=== PATIENT | female | born 1955 | race Caucasian/White ===

== ENCOUNTER 2017-10-14 07:05 | Day surgery (SDC) | payer OTHER ==
[~2017-10-14] VITALS: Ht 152.4 cm; Wt 90.7 kg
[~2017-10-14 07:05] MED LIST: ALBUTEROL SULF8.5 GM INH; ASPIRIN325 MG PO; BENADRYL25 MG PO; CRUTCH1 EACH; FLOVENT DISKU100 MCG INH; HYDROCHLOROTHIA25 MG PO; LEVOTHYROXINE100 MCG PO; LISINOPRIL20 MG PO; OMEPRAZOLE20 MG PO; SIMVASTATIN20 MG PO; VENLAFAXINE HCL75 MG PO; VICODIN 5-3001 EACH PO
--- NOTE | 2017-10-14 10:49 | NUR ---
10/14/17 Mayte9 Ayanna Jurado 1041 PT REPORTING 04/27, MEDICAITON GIVEN PER EMAR. 1048 PT REPORTING 01/26 PAIN
--- NOTE | 2017-10-14 13:48 | NUR ---
LE 1240: SANDWICH AND SOUP ARRIVES FROM DIETARY. PT SITTING UP IN BED EATING AND DENIES ADD'L NEEDS.
--- NOTE | 2017-10-25 09:50 | OR ---
[facility] [address], [place] [address] Signed DATE OF OPERATION: 10/14/2017 SURGEON: Jailene Mackay MD PREOPERATIVE DIAGNOSIS: Postmenopausal bleeding. POSTOPERATIVE DIAGNOSIS: Postmenopausal bleeding with multiple endometrial polyps. PROCEDURE: Hysteroscopy, D and C, resection of polyps. ANESTHESIA: General ET. ESTIMATED BLOOD LOSS: Minimal. DRAINS: None. INDICATIONS AND FINDINGS: The patient is a 61-year-old female, 4, para 4, who has had recent postmenopausal bleeding over the last 2 and 1/2 months. EMB was nondiagnostic. She is now admitted for further evaluation of her bleeding. At the time of surgery, exam under anesthesia was normal. The uterus sounded to 9 cm. On placement of the hysteroscope, there were multiple large polyps within the cavity. PROCEDURE IN DETAIL: The patient was prepped and draped in the dorsal lithotomy position. A weighted speculum was placed and the anterior lip of the cervix was visualized and grasped with a single-tooth tenaculum. The uterus sounded to 9 cm. The endocervical cavity was dilated to a #8 dilator. The hysteroscope was then placed using the MyoSure device. The cavity was evaluated. Multiple large polyps were seen. The hysteroscope was removed and polyp forceps were introduced and multiple large polyps were removed using the polyp forceps. Placing the hysteroscope again showed that there still were a few smaller polyps present. D and C was done after removing the hysteroscope, but no further tissue was obtained. Following this, the hysteroscope was replaced and because there were still some small polyps, MyoSure LITE device was placed. This device was used to remove the remaining Electronically Signed By: JAILENE MACKAY MD 10/25/17 0950 PATIENT NAME: IVORY DAMON OPERATIVE REPORT DATE OF : 57 PHYSICIAN: JAILENE MACKAY MD REPORT #: [id number] REPORT IS CONFIDENTIAL AND NOT TO BE RELEASED WITHOUT AUTHORIZATION [facility] [address] [place] [address] [place], [place] [address] Signed small polyps. Following this, the procedure was terminated. The tenaculum was removed and there was no evidence of bleeding from the tenaculum site. She was taken to the recovery room in good condition. Jailene Mackay MD PJW/MODL /[id number] cc: Dr. Piedra Electronically Signed By: JAILENE MACKAY MD 10/25/17 0950 PATIENT NAME: IVORY DAMON OPERATIVE REPORT DATE OF : 57 PHYSICIAN: JAILENE MACKAY MD REPORT #: [id number] REPORT IS CONFIDENTIAL AND NOT TO BE RELEASED WITHOUT AUTHORIZATION
== END 2017-10-14 13:10 | disposition home or self-care (01) ==
LOC: DS 07:05
PROVIDERS: Obstetrics & Gynecology
PROC: 0UDB8ZX Extraction of Endometrium, Via Natural or Artificial Opening Endoscopic, Diagnostic (ICD-10-PCS; principal; 2017-10-14 09:15)
DX: N84.0 Polyp of corpus uteri (principal); E78.00 Pure hypercholesterolemia, unspecified; I10 Essential (primary) hypertension; F32.9 Major depressive disorder, single episode, unspecified; E03.9 Hypothyroidism, unspecified; G47.33 Obstructive sleep apnea (adult) (pediatric); F17.210 Nicotine dependence, cigarettes, uncomplicated; J45.40 Moderate persistent asthma, uncomplicated; G89.4 Chronic pain syndrome; G25.81 Restless legs syndrome; Z90.89 Acquired absence of other organs; Z98.51 Tubal ligation status; Z88.0 Allergy status to penicillin; Z88.5 Allergy status to narcotic agent; Z79.899 Other long term (current) drug therapy
CPT/HCPCS: 00952; J0330; J1170; J1885; J2704; J2765; J3010; J7120

== ENCOUNTER 2017-12-12 11:08 | Emergency (ER) | payer OTHER ==
[~2017-12-12] VITALS: Ht 152.4 cm; Wt 90.7 kg
[2017-12-12] MEDS ORDERED: FLOVENT HFA12 GM INH (11:31)
[2017-12-12] MEDS ORDERED: CLEOCIN HCL300 MG PO (12:35)
== END 2017-12-12 12:51 | disposition home or self-care (01) ==
LOC: ED 11:08
PROC: 0C9WXZ0 Drainage of Upper Tooth, External Approach, Single (ICD-10-PCS; principal; 2017-12-12)
DX: K04.7 Periapical abscess without sinus (principal); K12.2 Cellulitis and abscess of mouth; I10 Essential (primary) hypertension; J45.909 Unspecified asthma, uncomplicated; F17.200 Nicotine dependence, unspecified, uncomplicated; Z88.0 Allergy status to penicillin; Z88.1 Allergy status to other antibiotic agents; Z88.5 Allergy status to narcotic agent; Z88.8 Allergy status to other drugs, medicaments and biological substances; Z79.899 Other long term (current) drug therapy; Z79.82 Long term (current) use of aspirin
CPT/HCPCS: 41800; 99283

== ENCOUNTER 2019-09-11 11:25 | Emergency (ER) | payer OTHER ==
[~2019-09-11] VITALS: Ht 152.4 cm; Wt 91.6 kg
--- OUTSIDE RECORDS SUMMARY | ~2019-09-11 | XMS | Encounter Summary ---
Demographics + + + | Address | [address] | | | [place] [address] | + + + | Home Phone | | + + + | Preferred Language | Unknown | + + + | Marital Status | | + + + | Uatsdin Affiliation | Unknown | + + + | Race | Unknown | + + + | Ethnic Group | Unknown | + + + Author + + + | Author | [facility] | | | and [place] | + + + | Organization | [facility] | | | and [place] | + + + | Address | Unknown | + + + | Phone | Unavailable | + + + Support + + +---------+ + | Name | Relationship | Address | Phone | + + +---------+ + | Nj Tuckerage | ECON | Unknown | | + + +---------+ + Care Team Providers + +------+ + | Care Bead Builder Name | Role | Phone | + +------+ + PCP | Unavailable | + +------+ + Encounter Details +--------+ + + + + | Date | Type | Department | Care Team | Description | +--------+ + + + + | 02/06/ | Hospital | C GENERIC IP | Conversion | Pain | | 2015 | Encounter | CONVERSION [address] | Transaction, | | | | | [address] | Provider Unknown | | | | | [place], [place] | | | | | | [phone] | (Fax) | | | | | [phone] | | | +--------+ + + + + Social History + +-------+ +--------+------+ | Tobacco Use | Types | Packs/Day | Years | Date | | | | | Used | | + +-------+ +--------+------+ | Never Assessed | | | | | + +-------+ +--------+------+ + + + | Sex Assigned at | Date Recorded | | | | + + + | Not on file | | + + + + + + + | Job Start Date | Occupation | Industry | + + + + | Not on file | Not on file | Not on file | + + + + + + + + | Travel History | Travel Start | Travel End | + + + + + + | No recent travel history available. | + + documented as of this encounter Plan of Treatment Not on filedocumented as of this encounter Procedures + +--------+ + + + | Procedure Name | Priori | Date/Time | Associated Diagnosis | Comments | | | ty | | | | + +--------+ + + + | MRI CERVICAL SPINE | Routin | 02/05/2015 | | Results for this | | WO CONTRAST | e | 5:05 AM | | procedure are in the | | | | PDT | | results section. | + +--------+ + + + documented in this encounter Results MRI Cervical Spine wo Contrast (02/05/2015 5:05 AM PDT) + + | Specimen | + + | | + + + + + | Narrative | Performed At | + + + | This is a non-reportable procedure without a radiologist report and | | | is used for image storage only | | + + + + + | Procedure Note | + + | Haile Fabian - 06/03/2019 5:16 AM PDT This is a non-reportable procedure | | without a radiologist report and isused for image storage only | + + documented in this encounter Visit Diagnoses + + | Diagnosis | + + | Pain Generalized pain | + + documented in this encounter"
--- OUTSIDE RECORDS SUMMARY | ~2019-09-11 | XMS | Clinical Summary ---
Demographics + + + | Address | [address] | | | [place] [address] | + + + | Home Phone | | + + + | Preferred Language | Unknown | + + + | Marital Status | | + + + | Jainism Affiliation | Unknown | + + + | Race | Unknown | + + + | Ethnic Group | Unknown | + + + Author + + + | Author | [facility] | | | and [place] | + + + | Organization | [facility] | | | and [place] | + + + | Address | Unknown | + + + | Phone | Unavailable | + + + Support + + +---------+ + | Name | Relationship | Address | Phone | + + +---------+ + | Nj Akers | ECON | Unknown | | + + +---------+ + Care Team Providers + +------+ + | Care Bobbin Trucker Name | Role | Phone | + +------+ + | Tomás Piedra MD | PCP | | + +------+ + Allergies Not on File Medications Not on file Active Problems Not on file Family History + + +------+ + | Medical History | Relation | Name | Comments | + + +------+ + | Cancer | Other | | | + + +------+ + | Diabetes | Other | | | + + +------+ + | Heart disease | Other | | | + + +------+ + | Hypertension | Other | | | + + +------+ + | Other (see comment) | Other | | Other (see comments) - Problems with | | | | | anesthesia | + + +------+ + | Stroke | Other | | | + + +------+ + + +------+--------+ + | Relation | Name | Status | Comments | + +------+--------+ + | Other | | | | + +------+--------+ + Social History + +-------+ +--------+------+ | Tobacco Use | Types | Packs/Day | Years | Date | | | | | Used | | + +-------+ +--------+------+ | Former Smoker | | 1 | | | + +-------+ +--------+------+ + [...] recent travel history available. | + + Last Filed Vital Signs Not on file Plan of Treatment + + + + + | Health Maintenance | Due Date | Last Done | Comments | + + + + + | Vaccine: | | | | | Dtap/Tdap/Td (1 - | 6 | | | | Tdap) | | | | + + + + + | Cervical Cancer | | | | | Screening (Pap) | 7 | | | + + + + + | Vaccine: Zoster (1 | | | | | of 2) | 7 | | | + + + + + | Breast Cancer | | | | | Screening | 2 | | | + + + + + | Vaccine: Influenza | | | | | (#1) | 9 | | | + + + + + Results Not on filefrom Last 3 Months"
--- OUTSIDE RECORDS SUMMARY | ~2019-09-11 | XMS | Encounter Summary ---
Demographics + + + | Address | [address] | | | [place] [address] | + + + | Home Phone | | + + + | Preferred Language | Unknown | + + + | Marital Status | | + + + | Jewish Affiliation | Unknown | + + + | Race | Unknown | + + + | Ethnic Group | Unknown | + + + Author + + + | Author | [facility] | | | and [place] | + + + | Organization | [facility] | | | and [...] Team Providers + +------+ + | Care Ict Business Analyst Name | Role | Phone | + +------+ + PCP | Unavailable | + +------+ + Encounter Details +--------+ + + + + | Date | Type | Department | Care Team | Description | +--------+ + + + + | 02/10/ | Hospital | C GENERIC IP | Conversion | Pain | | 2013 | Encounter | CONVERSION [address] | Transaction, | | | | | [address] | Provider Unknown | | | | | [place], [place] | | | | | | [phone] | (Fax) | | | | | [phone] | | | +--------+ + + + [...] | + +--------+ + + + | XR CERVICAL SPINE 2 | Routin | 01/23/2014 | | Results for this | | OR 3 VIEWS | e | 10:47 PM | | procedure are in the | | | | PDT | | results section. | + +--------+ + + + documented in this encounter Results XR Cervical Spine 2 or 3 Views (01/23/2014 10:47 PM PDT) + + | Specimen | + + | | + + + + + | Narrative | Performed At | + + + | This is a non-reportable procedure without a radiologist report and | | | is used for image storage only | | + + + + + | Procedure Note | + + | Haile Fabian - 06/03/2019 3:12 PM PDT This is a non-reportable procedure | | without a radiologist report and isused for image storage only | + + documented in this encounter Visit Diagnoses + + | Diagnosis | + + | Pain Generalized pain | + + documented in this encounter"
--- OUTSIDE RECORDS SUMMARY | ~2019-09-11 | XMS | Encounter Summary ---
Demographics + + + | Address | [address] | | | [place] [address] | + + + | Home Phone | | + + + | Preferred Language | Unknown | + + + | Marital Status | | + + + | Presybeterian Affiliation | Unknown | + + + | Race | Unknown | + + + | Ethnic Group | Unknown | + + + Author + + + | Author | [facility] | | | and [place] | + + + | Organization | [facility] | | | and [...] Team Providers + +------+ + | Care Sock Knitting Machine Operator Name | Role | Phone | + +------+ + PCP | Unavailable | + +------+ + Encounter Details +--------+ + + + + | Date | Type | Department | Care Team | Description | +--------+ + + + + | 02/13/ | Hospital | C GENERIC IP | Conversion | Pain | | 2015 | Encounter | CONVERSION [address] | Transaction, | | | | | [address] | Provider Unknown | | | | | [place], [place] | | | | | | [phone] | (Fax) | | | | | [phone] | | | +--------+ + + + [...] + +--------+ + + + | MRI LUMBAR SPINE WO | Routin | 02/12/2015 | | Results for this | | CONTRAST | e | 11:56 PM | | procedure are in the | | | | PDT | | results section. | + +--------+ + + + documented in this encounter Results MRI Lumbar Spine wo Contrast (02/12/2015 11:56 PM PDT) + + | Specimen | [...]
--- OUTSIDE RECORDS SUMMARY | ~2019-09-11 | XMS | Clinical Summary ---
Demographics + + + | Address | [address] | | | [place] [address] | + + + | Home Phone | | + + + | Preferred Language | Unknown | + + + | Marital Status | | + + + | Denominational Affiliation | Unknown | + + + | Race | Unknown | + + + | Ethnic Group | Unknown | + + + Author + + + | Author | [facility] (Historical as of | | | 06-04-19) | + + + | Organization | [facility] (Historical as of | | | 06-04-19) | + + + | Address | Unknown | + + + | Phone | Unavailable | + + + Support + + + + + | Name | Relationship | Address | Phone | + + + + + | Nj Akers | ECON | [address] | | | | | [place] | | | | | [address] | | + + + + + Care Team Providers + +------+ + | Care Clip Bolter And Wrapper Name | Role | Phone | + +------+ + | Tomás Piedra MD | PP | | + +------+ + Allergies + + + + + + | Active Allergy | Reactions | Severity | Noted | Comments | | | | | Date | | + + + + + + | Codeine | Nausea and Vomiting | Low | 04/18/20 | | | | | | 14 | | + + + + + + | Penicillins | Hives | High | 07/07/20 | | | | | | 14 | | + + + + + + Current Medications + + +-------+---------+------+------+-------+ | Prescription | Sig. | Disp. | Refills | Star | End | Statu | | | | | | t | Date | s | | | | | | Date | | | + + +-------+---------+------+------+-------+ | levothyroxine | Take 100 mcg by | | | | | Activ | | (SYNTHROID) 88 MCG | mouth every morning | | | | | e | | tablet | before breakfast. | | | | | | + + +-------+---------+------+------+-------+ | venlafaxine | Take 75 mg by mouth | | | | | Activ | | (EFFEXOR) 75 MG | 2 (two) times daily. | | | | | e | | tablet | | | | | | | + + +-------+---------+------+------+-------+ | simvastatin | Take 20 mg by mouth | | | | | Activ | | (ZOCOR) 20 MG tablet | nightly. | | | | | e | + + +-------+---------+------+------+-------+ | | Take 1 tablet by | | | | | Activ | | HYDROcodone-acetamin | mouth every 6 (six) | | | | | e | | ophen (NORCO) 5-325 | hours as needed. | | | | | | | MG per tablet | | | | | | | + + +-------+---------+------+------+-------+ | lisinopril | Take 20 mg by mouth | | | | | Activ | | (ZESTRIL) 20 MG | daily. | | | | | e | | tablet | | | | | | | + + +-------+---------+------+------+-------+ | | Take 25 mg by mouth | | | | | Activ | | hydrochlorothiazide | daily. | | | | | e | | (HYDRODIURIL) 25 MG | | | | | | | | tablet | | | | | | | + + +-------+---------+------+------+-------+ | cetirizine | Take 10 mg by mouth | | | | | Activ | | (ZYRTEC) 10 MG | daily. | | | | | e | | tablet | | | | | | | + + +-------+---------+------+------+-------+ | Fluticasone | Inhale into the | | | | | Activ | | Propionate, Inhal, | lungs. | | | | | e | | (FLOVENT IN) | | | | | | | + + +-------+---------+------+------+-------+ | meloxicam (MOBIC) | Take 15 mg by mouth | | | | | Activ | | 15 MG tablet | daily. | | | | | e | + + +-------+---------+------+------+-------+ Active Problems + + + | Problem | Noted Date | + + + | Lumbar radicular pain | 04/05/2015 | + + + + + | Last Assessment & Plan: This is a 59-year-old female who has | | neck pain with bilateral hand numbness and tingling. She also has | | back pain that travels to her lateral thighs and calves. Her | | back pain is by far the most severe problem versus her lower | | extremity radicular pain. She has tried multiple conservative | | measures to the years including anti-inflammatories, heat and | | cold, spine rehabilitation many years ago, Darvocet, hydrocodone, | | Flexeril, gabapentin, and Lunesta. She had a lumbar MRI | | performed at [facility]. This show that she has degenerative | | disk disease with disk bulging with a disk protrusion at L2-3 and | | moderate spinal stenosis at L4-5. Reviewed her MRI and discuss | | treatment options. Her symptoms could be due to the spinal | | stenosis at L4-5 versus facet hypertrophy as she does have axial | | mechanical lumbar pain. She would like to try interventional | | treatment. We will plan on a left L4 transforaminal epidural | | steroid injection under fluoroscopic guidance. If she denies any | | significant improvement of her back pain then we will send it for | | core strengthening physical therapy for 1-2 months and then she | | will return to review. Plan, alternatives, risks and potential | | benefits of the procedure were explained to the patient in great | | detail. The patient understands that there is no guarantee they | | will get pain relief with this procedure. They also understand | | that if they do get pain relief that there is no way to know how | | long it will last. They also understand there is a risk to the | | procedure itself which includes but are not limited to infection, | | abscess, hematoma, nerve damage, paraplegia or quadriplegia, | | increased pain, spinal headache, stroke, and side effects from | | the medications themselves. The patient wishes to proceed. | + + + + + | DDD (degenerative disc disease), lumbar | 04/05/2015 | + + + + + | Last Assessment & Plan: Please see discussion under lumbar | | radicular pain | + + + + + | Lumbar stenosis | 04/05/2015 | + + + + + | Last Assessment & Plan: Please see discussion under lumbar | | radicular pain | + + + + + | Lumbar facet arthropathy | 04/05/2015 | + + + + + | Last Assessment & Plan: Please see discussion under lumbar | | radicular pain | + + + + + | Chronic lower back pain | 02/06/2015 | + + + | Ulnar neuropathy | 02/06/2015 | + + + | Carpal tunnel syndrome of left wrist | 02/06/2015 | + + + | Cervical spinal stenosis | 07/07/2014 | + + + + + | Last Assessment & Plan: This patient also complains of neck | | pain with bilateral hand numbness and tingling. She has a | | cervical MRI that shows that she has multilevel disease and disk | | disease with disk bulging resulting in mild to moderate spinal | | stenosis at C5-6 lateral recess narrowing at C4-5 and right | | foraminal narrowing at C6-7. Reviewed her MRI and discuss | | treatment options. Her neck pain could be due to this central | | stenosis at C5-6 versus facet hypertrophy. She is a candidate for | | cervical epidural steroid injection. We will plan on a C7-T1 | | cervical epidural steroid injection 1 month after her lumbar | | injection. If she does not have any improvement of her symptoms | | and we will send her to physical therapy and then she will return | | to review.Plan, alternatives, risks and potential benefits of | | the procedure were explained to the patient in great detail. The | | patient understands that there is no guarantee they will get | | pain relief with this procedure. They also understand that if | | they do get pain relief that there is no way to know how long it | | will last. They also understand there is a risk to the procedure | | itself which includes but are not limited to infection, abscess, | | hematoma, nerve damage, paraplegia or quadriplegia, increased | | pain, spinal headache, stroke, and side effects from the | | medications themselves. The patient wishes to proceed. | + + + + + | Neuropathy, ulnar nerve | 05/20/2014 | + + + | Neck pain | 04/21/2014 | + + + | Numbness in both hands | 04/21/2014 | + + + | Cervical spondylosis | 04/21/2014 | + + + + + | Last Assessment & Plan: Please see discussion under cervical | | stenosis | + + + + + | DDD (degenerative disc disease), cervical | 04/21/2014 | + + + + + | Last Assessment & Plan: Please see discussion under cervical | | stenosis | + + Family History + + +------+ + | Medical History | Relation | Name | Comments | + + +------+ + | Cancer | | | | + + +------+ + | Diabetes | | | | + + +------+ + | Heart disease | | | | + + +------+ + | Hypertension | | | | + + +------+ + | Other (see comments) | | | Problems with anesthesia | + + +------+ + | Stroke | | | | + + +------+ + + +------+--------+ + | Relation | Name | Status | Comments | + +------+--------+ + Social History + +-------+ +--------+ + | Tobacco Use | Types | Packs/Day | Years | Date | | | | | Used | | + +-------+ +--------+ + | Former Smoker | | 1 | | Quit: 09/18/2014 | + +-------+ +--------+ + + +---+---+---+ | Smokeless Tobacco: | | | | | Never Used | | | | + +---+---+---+ + + +---------+ + | Alcohol Use | Drinks/We | oz/Week | Comments | | | ek | | | + + +---------+ + | No | | | | + + +---------+ + + + + | Sex Assigned at | Date Recorded | | | | + + + | Not on file | | + + + Last Filed Vital Signs + + + + | Vital Sign | Reading | Time Taken | + + + + | Blood Pressure | 135/73 | 05/01/2015 10:56 AM PDT | + + + + | Pulse | 65 | 05/01/2015 10:56 AM PDT | + + + + | Temperature | 36.5 C (97.7 F) | 05/01/2015 9:44 AM PDT | + + + + | Respiratory Rate | 16 | 05/01/2015 10:56 AM PDT | + + + + | Oxygen Saturation | 95% | 05/01/2015 10:56 AM PDT | + + + + | Inhaled Oxygen | - | - | | Concentration | | | + + + + | Weight | 85.7 kg (189 lb) | 05/01/2015 9:44 AM PDT | + + + + | Height | 152.4 cm (5') | 05/01/2015 9:44 AM PDT | + + + + | Body Mass Index | 36.91 | 05/01/2015 9:44 AM PDT | + + + + Plan of Treatment + + + + [...] + Results Not on filefrom Last 3 Months Insurance + +--------+ +------+-------+ + | Payer | Benefi | Subscriber | Type | Phone | Address | | | t Plan | ID | | | | | | / | | | | | | | Group | | | | | + +--------+ +------+-------+ + | MEDICAID | [employer] | [id number] | | | [address] | | | [place] | | | | [place] | | | [place] | | | | [address] | | | [employer] | | | | | + +--------+ +------+-------+ + + +--------+ +--------+ + + | Guarantor Name | Accoun | Relation to | Date | Phone | Billing Address | | | t Type | Patient | of | | | | | | | | | | + +--------+ +--------+ + + | IVORY AKERS | Person | Self [birth year] | Work: | [address] | | | [employer] | | 1955 | [phone] [place] | | | caity | | | [phone]: | [address] | | | | | | | | | | | | | [phone] | | | | | | | [phone] | | + +--------+ +--------+ + +"
--- OUTSIDE RECORDS SUMMARY | ~2019-09-11 | XMS | Encounter Summary ---
Demographics + + + | Address | [address] | | | [place] [address] | + + + | Home Phone | | + + + | Preferred Language | Unknown | + + + | Marital Status | | + + + | Cheondoism Affiliation | Unknown | + + + | Race | Unknown | + + + | Ethnic Group | Unknown | + + + Author + + + | Author | [facility] | | | and [place] | + + + | Organization | [facility] | | | [...] Team Providers + +------+ + | Care Seaman Officer Name | Role | Phone | + [...] Provider Unknown | | | | | [place], [place] | | | | | | [address] | (Fax) | | | | | [phone] | | | +--------+ + + + [...] | MRI CERVICAL SPINE | Routin | 02/01/2014 | | Results for this | | WO CONTRAST | e | 10:47 PM | | procedure are in the | | | | PDT | | results section. | + +--------+ + + + documented in this encounter Results MRI Cervical Spine wo Contrast (02/01/2014 10:47 PM PDT) + + | Specimen [...]
[~2019-09-11 11:25] MED LIST changes: +CLEOCIN HCL300 MG PO; +FLOVENT HFA12 GM INH
--- OUTSIDE RECORDS SUMMARY | 2019-09-11 11:28 | XMS ---
PreManage Notification: IVORY DAMON Security Transmitter Tester Events No recent Security Events currently on file [facility] There are no care providers on record at this time. [facility] has no Care Guidelines for this patient. [facility] VISIT COUNT (12 MO.) 1 [facility] TOTAL 1 NOTE: Visits indicate total known visits. ED/C VISIT TRACKING (12 MO.) 09/11/2019 11:27 [facility] OR TYPE: Emergency COMPLAINT: - LEFT KNEE PAIN/NON INJURY INPATIENT VISIT TRACKING (12 MO.) No inpatient visits to display in this time frame [email or web address]
[2019-09-11] MEDS ORDERED: CRUTCH1 EACH (13:00)
== END 2019-09-11 13:23 | disposition home or self-care (01) ==
LOC: ED 11:25
DX: S83.92XA Sprain of unspecified site of left knee, initial encounter (principal); I10 Essential (primary) hypertension; J45.909 Unspecified asthma, uncomplicated; F17.200 Nicotine dependence, unspecified, uncomplicated; Z88.0 Allergy status to penicillin; Z88.1 Allergy status to other antibiotic agents; Z88.8 Allergy status to other drugs, medicaments and biological substances; Z79.899 Other long term (current) drug therapy; Z79.82 Long term (current) use of aspirin; X50.1XXA Overexertion from prolonged static or awkward postures, initial encounter
CPT/HCPCS: 73560; 96372; 99283-25; J1885